=== PATIENT | female | born 1965 ===

== ENCOUNTER 2019-07-30 18:30 | Outpatient (CLI) | payer BC | END 2019-07-30 18:31 | disposition home or self-care (01) | LOC: SLEEPLAB 18:30 | PROVIDERS: ATTEND Family Medicine | DX: G47.33 Obstructive sleep apnea (adult) (pediatric) (principal); R06.83 Snoring; R09.89 Other specified symptoms and signs involving the circulatory and respiratory systems | CPT/HCPCS: 95806 ==